=== PATIENT | female | born 1960 | race Caucasian/White ===

== ENCOUNTER 2019-02-02 13:26 | Inpatient (IN) ==
--- NOTE | 2019-02-02 17:42 | Internal Med History&Physical ---
<Prince Velez - Last Filed: 02/02/19 18:14> Date of Encounter: 02/02/19 Time of Encounter: 18:15 Internal Medicine - H&P: HPI Chief complaint: SOB Admitted From: Hospital to Hospital Transfer Plans for Post Hospital Care: Home History of present illness: Ms. Lafleur is a 58 year old female with history of hypothyroidism and DVTs who presented to [facility] for shortness of breath, poor appetite, nausea vomiting and diarrhea of 5 days duration. The patient says that these symptoms all started on Saturday of last week and has been progressively getting worse. The initially started with achiness in her muscles and joints and soreness all over her body. They eventually progressed to shortness of breath which apparently getting worse. It is associated with a cough which is sometimes productive. She says she did have some subjective fevers however denies chills and sweats. She also has some nausea and vomiting as well as some diarrhea with 2-3 loose bowel movements that are not black in color. She attempted to take some aspirin and Motrin for this however they were not helpful. She did take some old cough syrup that she had which was somewhat helpful. Nothing else seemed to be very helpful in this situation. In the ED the patient did have labs which demonstrated WBC 16 with 8% bands, and otherwise normal findings. She had a CXR with was generally unremarkable. Her vitals were significant for oxygen saturation of less than 80 on room air requiring oxygen to maintain saturation. She was transferred to [facility] for further management. Past Med Surg Social Fam HX - Past Medical History Medical history: diabetes, thyroid disease Psychiatric history: no psych history - Past Surgical History Surgical History: no surgical history - Social History Smoking Status: Current every day smoker Packs per day: 1 Smokeless Tobacco Status: No Alcohol use: none Drug use: none - Family History Mother Living Status: Still Living Hx Family Cardiac Disorders: Yes Internal Medicine - H&P: Meds Levothyroxine [Synthroid] 100 mcg PO 0630 02/02/19 [History] Allergy/AdvReac Type Severity Reaction Status Date / Time No Known Allergies Allergy Verified 02/02/19 10:34 All Systems PM: A 10-system review of systems was performed and is negative for pertinent findings except as documented above in the HPI. Review of systems: Constitutional: Denies chills, weight loss, generalized fatigue. Admits to subjective fever Head/Neck: Denies JUNG, neck stiffness EENT: Denies vision changes/blurriness, rhinorrhea, congestion, sore throat CVS: Denies chest pain, palpitations, PENN, orthopnea, edema, PND Pulm: Denies hemoptysis. Admits to shortness of breath, cough with sputum production, wheezing. GI: Denies abdominal pain, constipation, melena, hematemasis. Admits to nausea, vomiting, diarrhea : Denies dysuria, increased frequency, urgency, hematuria Heme: Denies ease of bleeding or bruising MSK: Denies joint pain, limited ROM Skin: Denies rashes, ulcers, color changes Neuro: Denies JUNG, paresthesias, focal deficits, ataxia - Constitutional Vitals: Temp Pulse Resp BP Pulse Ox 98.7 F 82 18 119/70 90 02/02/19 15:58 02/02/19 15:58 02/02/19 15:58 02/02/19 15:58 02/02/19 15:58 Exam: Gen: Vitals noted. No acute distress. Eyes: anicteric sclerae, moist conjunctivae; no lid-lag; Pupils equal and reactive to light HENT: Atraumatic; oropharynx clear with moist mucous membranes and no mucosal ulcerations; normal hard and soft palate Neck: Trachea midline; supple, no thyromegaly or lymphadenopathy Cardiac: RRR, no murmur, +S1/S2 Pulmonary: Diffuse wheezing with rhonchi and bilateral lower bases noted Abdomen: soft, nontender, no guarding. No masses or hepatosplenomegaly MSK: ROM intact, no joint swelling noted Extremities: no BLE edema, nontender calf, no cyanosis or clubbing Skin: Normal temperature, turgor and texture; no rash, ulcers or subcutaneous nodules Neuro: moves all extremities, no focal deficits. Psych: Appropriate mood and behavior. A&Ox3 - Assessment and Plan (1) COPD exacerbation Current Visit: Yes Status: Suspected Assessment and plan: Suspected COPD exacerbation, no confirmed diagnosis of COPD on pulmonary function tests Patient does have significant smoking history, wheezing and rhonchi on exam Presents with acute hypoxic and hypercapnic respiratory failure Chest x-ray demonstrates no specific consolidation however pneumonia does remain in the differential Start the patient on Solumedrol 60mg q8h, Rocephin and Azithromycin Continue O2, titrate to SPO2 >88% Duonebs q4h scheduled and prn Consider bipap support prn (2) Acute respiratory failure with hypoxia and hypercapnia Current Visit: Yes Status: Acute Assessment and plan: Acute hypoxic respiratory failure with hypercapnia Hypoxix requiring 6L O2, PCO2 56 Secondary to COPD exacerbation Plan as above (3) Community acquired pneumonia Current Visit: Yes Status: Suspected Assessment and plan: Plan above Check pro calcitonin Qualifiers: Laterality: unspecified laterality Qualified Code(s): J18.9 - Pneumonia, unspecified organism (4) History of DVT (deep vein thrombosis) Current Visit: Yes Status: Acute Assessment and plan: Subcutaneous Lovenox for prophylaxis (5) Hypothyroidism Current Visit: Yes Status: Acute Assessment and plan: Continue home levothyroxine Qualifiers: Hypothyroidism type: unspecified Qualified Code(s): E03.9 - Hypothyroidism, unspecified - Time Spent With Patient Total time spent is greater than 50% in coordination of care (as documented) at patient's floor/unit and/or counseling patient: <Yanelis Razo - Last Filed: 02/02/19 21:10> Date of Encounter: 02/02/19 Internal Medicine - H&P: HPI History of present illness: Ms. Lafleur is a 58 year old female All Systems PM: A 10-system review of systems was performed and is negative for pertinent findings except as documented above in the HPI. - Constitutional Vitals: Temp Pulse Resp BP Pulse Ox 98.5 F 83 14 108/78 88 02/02/19 20:02 02/02/19 20:02 02/02/19 20:06 02/02/19 20:02 02/02/19 20:06 Internal Med - H&P Results - ABG Interpretation ABG results: 02/02/19 19:48 ABG pH 7.40 ABG pCO2 54 H ABG pO2 53 L ABG HCO3 33 H ABG Total CO2 35 H ABG O2 Saturation 86 L ABG Base Excess 6 H - Assessment and Plan (1) Acute respiratory failure with hypoxia and hypercapnia Current Visit: Yes Status: Acute (2) COPD exacerbation Current Visit: Yes Status: Suspected (3) Community acquired pneumonia Current Visit: Yes Status: Suspected Qualifiers: Laterality: unspecified laterality Qualified Code(s): J18.9 - Pneumonia, unspecified organism (4) History of DVT (deep vein thrombosis) Current Visit: Yes Status: Acute (5) Hypothyroidism Current Visit: Yes Status: Acute Qualifiers: Hypothyroidism type: unspecified Qualified Code(s): E03.9 - Hypothyroidism, unspecified - Time Spent With Patient Total time spent is greater than 50% in coordination of care (as documented) at patient's floor/unit and/or counseling patient: - Attending Attestation I examined this patient and my medical decision-making was reviewed with the Resident Physician. I agree with the documented findings, disposition and treatment plan as described except to the extent set forth below.
[2019-02-02] MEDS ORDERED: Naloxone 0.4 MG/ML INJ IVP PRN (18:05)
[2019-02-02] MEDS ORDERED: Dextrose Gel 15 GM/37.5 ML TUBE PO PRN ×2 (18:09)
[2019-02-02] MEDS ORDERED: D5% in Water 1,000 ML IVC PRN (18:09)
[2019-02-02] MEDS ORDERED: *HR* Dextrose 50 % in Water (Syg) 50 ML SYRINGE IVP PRN (18:09)
[2019-02-02] MEDS ORDERED: Ipratropium/Albuterol Neb 3 ML IH PRN (18:09)
[2019-02-02 19:56] LABS: ABG Base Excess 6 mEq/L (-2 to 3); ABG HCO3 33 mEq/L (21-27); ABG Oxygen Saturation 86 % (95-98); ABG PCO2 54 mmHg (35-45); ABG PO2 53 mmHg (85-104); ABG TCO2 35 mEq/L (20-26)
[2019-02-02] MEDS: Ipratropium/Albuterol Neb 3 ML IH SCH (20:05)
[2019-02-02] MEDS: Insulin LISPRO 300 UNITS/3 ML VIAL SQ SCH ×2 (20:15→20:16)
[2019-02-02 20:40] LABS: Adenovirus DETECTED (Not Detect); Bordetella Pertussis Not Detected (Not Detect); Chlamydophila pneumoniae Not Detected (Not Detect); Coronavirus 229E Not Detected (Not Detect); Coronavirus HKU1 Not Detected (Not Detect); Coronavirus NL63 Not Detected (Not Detect); Coronavirus OC43 Not Detected (Not Detect); Human Metapneumovirus Not Detected (Not Detect); Human Rhinovirus/Enterovirus Not Detected (Not Detect); Influenza A Subtype 2009 H1 Not Detected (Not Detect); Influenza A Untypeable Not Detected (Not Detect); Influenza B Not Detected (Not Detect); Mycoplasma pneumoniae Not Detected (Not Detect); Parainfluenza Virus 1 Not Detected (Not Detect); Parainfluenza Virus 2 Not Detected (Not Detect); Parainfluenza Virus 3 Not Detected (Not Detect); Parainfluenza Virus 4 Not Detected (Not Detect); Respiratory Syncytial Virus Not Detected (Not Detect)
[2019-02-02] MEDS: methylPREDNISolone 125 MG/2 ML VIAL IVP SCH (23:57)
[2019-02-03] MEDS: Ipratropium/Albuterol Neb 3 ML IH SCH ×6 (00:10→19:55)
[2019-02-03] MEDS: *HR* Enoxaparin 40 MG/0.4 ML SYRINGE SQ SCH (05:35)
--- NOTE | 2019-02-03 06:15 | Internal Med Progress Note ---
<Prince Velez - Last Filed: 02/03/19 06:14> Hospitalist Progress Note - Encounter Date of Encounter: 02/03/19 - Exam Vitals: Temp Pulse Resp BP Pulse Ox 98.4 F 102 18 106/60 82 02/03/19 04:40 02/03/19 04:40 02/03/19 04:40 02/03/19 04:40 02/03/19 04:40 Exam: Gen: Vitals noted. No acute distress. Eyes: anicteric sclerae, moist conjunctivae; no lid-lag; Pupils equal and r eactive to light HENT: Atraumatic; oropharynx clear with moist mucous membranes and no mucosal ulcerations; normal hard and soft palate Neck: Trachea midline; supple, no thyromegaly or lymphadenopathy Cardiac: RRR, no murmur, +S1/S2 Pulmonary: Diffuse wheezing with rhonchi and bilateral lower bases noted Abdomen: soft, nontender, no guarding. No masses or hepatosplenomegaly MSK: ROM intact, no joint swelling noted Extremities: no BLE edema, nontender calf, no cyanosis or clubbing Skin: Normal temperature, turgor and texture; no rash, ulcers or subcutaneous nodules Neuro: moves all extremities, no focal deficits. Psych: Appropriate mood and behavior. A&Ox3 - Assessment and Plan (1) COPD exacerbation Current Visit: Yes Status: Suspected Assessment and Plan: Suspected COPD exacerbation, no confirmed diagnosis of COPD on pulmonary functio n tests Patient does have significant smoking history, wheezing and rhonchi on exam Presents with acute hypoxic and hypercapnic respiratory failure Chest x-ray demonstrates no specific consolidation however pneumonia does remain in the differential Continue Solumedrol 60mg q8h, Rocephin and Azithromycin Continue O2, titrate to SPO2 >88% Duonebs q4h scheduled and prn Consider bipap support prn (2) Community acquired pneumonia Current Visit: Yes Status: Suspected Assessment and Plan: Plan above Check pro calcitonin (3) History of DVT (deep vein thrombosis) Current Visit: Yes Status: Acute Assessment and Plan: Subcutaneous Lovenox for prophylaxis (4) Hypothyroidism Current Visit: Yes Status: Acute Assessment and Plan: Continue home levothyroxine - Time Spent with Patient Total time spent is greater than 50% in coordination of care (as documented) at patient's floor/unit and/or counseling patient: Internal Medicine: Result - ABG Interpretation ABG results: ABG ABG pH 7.40 pH Units (7.32-7.45) 02/02/19 19:48 ABG pCO2 54 mmHg (35-45) H 02/02/19 19:48 ABG pO2 53 mmHg (85-104) L 02/02/19 19:48 ABG O2 Saturation 86 % (95-98) L 02/02/19 19:48 Consult Discharge Plan - Plan Referrals: Yeu Galan, OVI [Primary Care Provider] - <Yanelis Razo - Last Filed: 02/03/19 21:52> Hospitalist Progress Note - Encounter Date of Encounter: 02/03/19 Time of Encounter: 09:00 - Exam Vitals: Temp Pulse Resp BP Pulse Ox 98.0 F 84 17 122/73 91 02/03/19 16:17 02/03/19 16:17 02/03/19 16:17 02/03/19 16:17 02/03/19 16:17 - Assessment and Plan (1) COPD exacerbation Current Visit: Yes Status: Suspected (2) Community acquired pneumonia Current Visit: Yes Status: Suspected (3) History of DVT (deep vein thrombosis) Current Visit: Yes Status: Acute (4) Hypothyroidism Current Visit: Yes Status: Acute - Time Spent with Patient Total time spent is greater than 50% in coordination of care (as documented) at patient's floor/unit and/or counseling patient: Internal Medicine: Result - Labs CBC & Chem 7: 02/03/19 06:08 02/03/19 06:08 Labs: Short CBC 02/03/19 Range/Units 06:08 WBC 17.4 H (4.3-11.1) K/mcL Hgb 13.0 (11.5-15.4) g/dL Hct 41.4 (35.3-44.9) % Plt Count 225 (140-400) K/mcL Neutrophils # 15.2 H (1.6-8.9) K/mcL BMP 02/03/19 06:08 Sodium 138 Potassium 3.9 Chloride 101 Carbon Dioxide 29 BUN 18 Creatinine 0.62 Glucose 234 H Calcium 9.6 Liver Function 02/03/19 Range/Units 06:08 Total Bilirubin 0.3 (0.3-1.0) mg/dL AST 37 (13-39) Units/L ALT 24 (7-52) Units/L Alkaline Phosphatase 79 (34-104) Units/L Albumin 3.3 L (3.5-5.7) g/dL - ABG Interpretation ABG results: ABG ABG pH 7.40 pH Units (7.32-7.45) 02/02/19 19:48 ABG pCO2 54 mmHg (35-45) H 02/02/19 19:48 ABG pO2 53 mmHg (85-104) L 02/02/19 19:48 ABG O2 Saturation 86 % (95-98) L 02/02/19 19:48 PT/INR, D-dimer PT 12.7 Seconds (9.4-12.1) H 02/03/19 06:08 - Attending Attestation No acute events. Patient states she SOB is improving, but nursing reports that she is still requiring high flow o2. Denies fevers/chills, cp, n/v. VS: reviewed, on high flow O2, afebrile Physical exam: gen mild resp distress, alert, CVS: tachycardic, lungs: wheezing, course breath sounds, abd: soft, nt/nd, ext: no edema. labs: reviewed: WBC 17k since starting steroids, was 16k yesterday. A/P: 1. Acute respiratory failure with hypoxia and hypercapnea 2. COPD exacerbation 3. Suspected bacterial pneumonia 4. URI + adenovirus - Continue supportive care with O2, steroids, antibiotics, scheduled Duo Nebs and prn, wean O2 as tolerated <Prince Velez - Last Filed: 02/03/19 06:14> (2) Community acquired pneumonia Qualifiers: Laterality: unspecified laterality Qualified Code(s): J18.9 - Pneumonia, unspecified organism (4) Hypothyroidism Qualifiers: Hypothyroidism type: unspecified Qualified Code(s): E03.9 - Hypothyroidism, unspecified <Yanelis Razo - Last Filed: 02/03/19 21:52> (2) Community acquired pneumonia Qualifiers: Laterality: unspecified laterality Qualified Code(s): J18.9 - Pneumonia, unspecified organism (4) Hypothyroidism Qualifiers: Hypothyroidism type: unspecified Qualified Code(s): E03.9 - Hypothyroidism, unspecified
[2019-02-03 06:25] LABS: Basophils # 0.1 K/mcL (0.0-0.2); Basophils % 0.3 %; Hematocrit 41.4 % (35.3-44.9); Immature Granulocytes % 1.2 % (0-4); Lymphocytes # 1.3 K/mcL (0.6-4.6); Lymphocytes % 7.5 %; Mean Corpuscular HGB Conc 31.4 g/dL (31.6-35.5); Mean Corpuscular Hemoglobin 28.3 pg (28.0-33.3); Mean Platelet Volume 10.4 fL (9.4-12.4); Monocytes # 0.7 K/mcL (0.0-1.3); Monocytes % 3.8 %; Neutrophils # 15.2 K/mcL (1.6-8.9); Platelet Count 225 K/mcL (140-400); Red Cell Distribution Width 14.1 % (11.5-14.5); Segmented Neutrophils % 87.2 %
[2019-02-03 06:37] LABS: INR 1.1; Prothrombin Time 12.7 Seconds (9.4-12.1)
[2019-02-03 06:49] LABS: Alanine Aminotransferase 24 Units/L (7-52); Albumin 3.3 g/dL (3.5-5.7); Albumin/Globulin Ratio 0.8 (1.1-2.2); Alkaline Phosphatase 79 Units/L (34-104); Aspartate Amino Transferase 37 Units/L (13-39); BUN/Creatinine Ratio 29 (6-26); Bilirubin,Total 0.3 mg/dL (0.3-1.0); Blood Urea Nitrogen 18 mg/dL (6-20); Calcium 9.6 mg/dL (8.6-10.3); Carbon Dioxide 29 mEq/L (23-29); Chloride 101 mEq/L (98-107); Glucose 234 mg/dL (70-105); Osmolality,Calculated 295 (280-300); Potassium 3.9 mEq/L (3.5-5.1); Sodium 138 mEq/L (136-145); Total Protein 7.3 g/dL (6.4-8.9); eGFR For Non-African Americans > 60 (> 60)
[2019-02-03 06:54] LABS: Platelet Estimate Normal (Normal)
[2019-02-03 07:19] LABS: Estimated Average Glucose 154 mg/dl
[2019-02-03] MEDS: Nicotine 14 MG PATCH.TD24 TD SCH (10:24)
[2019-02-03] MEDS: cefTRIAXone 1,000 MG in Water for inj. (sterile) 20 ML 10 ML IVP SCH (10:35)
[2019-02-03] MEDS: methylPREDNISolone 125 MG/2 ML VIAL IVP SCH ×3 (10:35→23:51)
[2019-02-03] MEDS: Insulin LISPRO 300 UNITS/3 ML VIAL SQ SCH ×4 (10:36→22:14)
[2019-02-03] MEDS: Azithromycin 500 MG in D5% in Water 250 ML IVPB SCH (13:17)
[2019-02-04] MEDS: Ipratropium/Albuterol Neb 3 ML IH SCH ×7 (00:39→23:36)
[2019-02-04] MEDS: *HR* Enoxaparin 40 MG/0.4 ML SYRINGE SQ SCH (05:54)
[2019-02-04] MEDS: Insulin LISPRO 300 UNITS/3 ML VIAL SQ SCH ×6 (08:41→22:45)
[2019-02-04] MEDS: Nicotine 14 MG PATCH.TD24 TD SCH (08:46)
[2019-02-04] MEDS: methylPREDNISolone 125 MG/2 ML VIAL IVP SCH ×2 (09:12→15:59)
[2019-02-04] MEDS: cefTRIAXone 1,000 MG in Water for inj. (sterile) 20 ML 10 ML IVP SCH (09:12)
[2019-02-04 11:37] LABS: Hematocrit 44.6 % (35.3-44.9); Hemoglobin 13.9 g/dL (11.5-15.4); Mean Corpuscular HGB Conc 31.2 g/dL (31.6-35.5); Mean Corpuscular Hemoglobin 28.4 pg (28.0-33.3); Mean Corpuscular Volume 91.2 fL (83.0-100.0); Mean Platelet Volume 10.5 fL (9.4-12.4); Platelet Count 280 K/mcL (140-400); Red Blood Count 4.89 M/mcL (3.82-4.97); Red Cell Distribution Width 14.2 % (11.5-14.5)
[2019-02-04] MEDS: Azithromycin 500 MG in D5% in Water 250 ML IVPB SCH (12:40)
[2019-02-04] MEDS ORDERED: Furosemide 20 MG/2 ML VIAL IVP ONE (13:42)
[2019-02-04] MEDS ORDERED: Isovue-370 500 ML BOTTLE IVP ONE (13:42)
[2019-02-04 14:19] LABS: Lymphocytes # 1.3 K/mcL (0.6-4.6); Monocytes # 0.9 K/mcL (0.0-1.3); Neutrophils # 20.1 K/mcL (1.6-8.9)
[2019-02-04 14:20] LABS: Platelet Estimate Normal (Normal); Reactive Lymphocytes Present (Not Present)
[2019-02-04] MEDS: Levofloxacin 750 MG/150 ML 750 MG/150 ML BAG IVPB SCH (15:58)
[2019-02-04] MEDS: Cefepime HCl 2,000 MG in Water for inj. (sterile) 20 ML 20 ML IVP SCH (15:59)
--- NOTE | 2019-02-04 16:05 | Internal Med Progress Note ---
<Prince Velez - Last Filed: 02/04/19 16:02> Hospitalist Progress Note - Encounter Date of Encounter: 02/04/19 Time of Encounter: 09:35 - Subjective Interval History: Patient has improved some clinically, but still requires high flow O2 and sometimes BiPAP support. She says that she is breathing better, however coughing less. 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 - Exam Vitals: Temp Pulse Resp BP Pulse Ox 97.7 F 74 16 125/74 94 02/04/19 10:51 02/04/19 10:51 02/04/19 11:21 02/04/19 10:51 02/04/19 11:21 Exam: Gen: Vitals noted. No acute distress. Eyes: anicteric sclerae, moist conjunctivae; no lid-lag; Pupils equal and reactive to light HENT: Atraumatic; oropharynx clear with moist mucous membranes and no mucosal ulcerations; normal hard and soft palate Neck: Trachea midline; supple, no thyromegaly or lymphadenopathy Cardiac: RRR, no murmur, +S1/S2 Pulmonary: Poor air flow b/l, diffuse wheezes Abdomen: soft, nontender, no guarding. No masses or hepatosplenomegaly MSK: ROM intact, no joint swelling noted Extremities: no BLE edema, nontender calf, no cyanosis or clubbing Skin: Normal temperature, turgor and texture; no rash, ulcers or subcutaneous nodules Neuro: moves all extremities, no focal deficits. Psych: Appropriate mood and behavior. A&Ox3 - Assessment and Plan (1) COPD exacerbation Current Visit: Yes Status: Suspected Assessment and Plan: Suspected COPD exacerbation, no confirmed diagnosis of COPD on pulmonary function tests Patient does have significant smoking history, wheezing and rhonchi on exam Presents with acute hypoxic and hypercapnic respiratory failure Chest x-ray demonstrates no specific consolidation however pneumonia does remain in the differential Continue Solumedrol 60mg q8h Continue O2, titrate to SPO2 >88% Duonebs q4h scheduled and prn Consider bipap support prn Consult to pulmonology as patient continues to require high flow O2 with little improvement Recommended pseudomonal coverage Switch to cefepime + levaquin CTA Chest to rule out PE, Echo to rule out CHF 20mg IV Lasix (2) Community acquired pneumonia Current Visit: Yes Status: Suspected Assessment and Plan: Plan above Check pro calcitonin (3) History of DVT (deep vein thrombosis) Current Visit: Yes Status: Acute Assessment and Plan: Subcutaneous Lovenox for prophylaxis (4) Hypothyroidism Current Visit: Yes Status: Acute Assessment and Plan: Continue home levothyroxine - Time Spent with Patient Total time spent is greater than 50% in coordination of care (as documented) at patient's floor/unit and/or counseling patient: Internal Medicine: Result - Labs CBC & Chem 7: 02/04/19 11:17 02/03/19 06:08 Labs: Short CBC 02/04/19 Range/Units 11:17 WBC 22.3 H (4.3-11.1) K/mcL Hgb 13.9 (11.5-15.4) g/dL Hct 44.6 (35.3-44.9) % Plt Count 280 (140-400) K/mcL Neutrophils # 20.1 H (1.6-8.9) K/mcL - ABG Interpretation ABG results: ABG ABG pH 7.40 pH Units (7.32-7.45) 02/02/19 19:48 ABG pCO2 54 mmHg (35-45) H 02/02/19 19:48 ABG pO2 53 mmHg (85-104) L 02/02/19 19:48 ABG O2 Saturation 86 % (95-98) L 02/02/19 19:48 PT/INR, D-dimer PT 12.7 Seconds (9.4-12.1) H 02/03/19 06:08 - Impressions Impressions Chest CTA 02/04/19 13:42 IMPRESSION: No evidence of pulmonary embolism. Bibasilar airspace disease suspicious for pneumonia. Disease in the lingula may be due to superimposed atelectasis. Given the lower lobe dependent endobronchial opacification aspiration pneumonia is considered. This may also be due to mucous plugging. D/ / Vern Milton MD / Vern Milton MD Interpreting Provider: Vern Milton MD Consult Discharge Plan - Plan Referrals: Yue Galan, RADIATOR MECHANIC [Primary Care Provider] - 02/06/19 11:00 am <Ziggy Wilson - Last Filed: 02/04/19 18:31> Hospitalist Progress Note - Encounter Date of Encounter: 02/04/19 Internal Medicine: Result - Labs CBC & Chem 7: 02/04/19 11:17 02/03/19 06:08 Labs: Short CBC 02/04/19 Range/Units 11:17 WBC 22.3 H (4.3-11.1) K/mcL Hgb 13.9 (11.5-15.4) g/dL Hct 44.6 (35.3-44.9) % Plt Count 280 (140-400) K/mcL Neutrophils # 20.1 H (1.6-8.9) K/mcL - ABG Interpretation ABG results: ABG ABG pH 7.40 pH Units (7.32-7.45) 02/02/19 19:48 ABG pCO2 54 mmHg (35-45) H 02/02/19 19:48 ABG pO2 53 mmHg (85-104) L 02/02/19 19:48 ABG O2 Saturation 86 % (95-98) L 02/02/19 19:48 PT/INR, D-dimer PT 12.7 Seconds (9.4-12.1) H 02/03/19 06:08 - Impressions Impressions Chest CTA 02/04/19 13:42 IMPRESSION: No evidence of pulmonary embolism. Bibasilar airspace disease suspicious for pneumonia. Disease in the lingula may be due to superimposed atelectasis. Given the lower lobe dependent endobronchial opacification aspiration pneumonia is considered. This may also be due to mucous plugging. D/ / Vern Milton MD / Vern Milton MD Interpreting Provider: Vern Milton MD - Attending Attestation Patient seen and examined independently, including review of objective data including labs. I agree with plan of care as documented above by the resident with the following comments: Initially concerned upon learning that this patient with undiagnosed COPD was now requiring 10L [place] to maintain sats; however upon my exam the patient was comfortable and talking unlabored in full sentences. Pulse ox showing sats 95%+ when waveform was good, and sats ~80% when poor/absent waveform, suspicious of mechanical issue and not true severe hypoxemia. I personally weaned patient to 5 L and continued discussion, with pt maintaining 92-94% on 5L while talking, with occasional episodes of sudden desats correlating with poor waveform which would return to 90s when patient stopped moving and waveform/reading improved. However, by this time, Pulmonology had already been consulted and I do agree with broadening abx coverage for now and ensuring patient does continue to improve. Likely secondary bacterial pneumonia following adenovirus infection causing COPD exacerbation and acute hypoxic respiratory failure. <Prince Velez - Last Filed: 02/04/19 16:02> (2) Community acquired pneumonia Qualifiers: Laterality: unspecified laterality Qualified Code(s): J18.9 - Pneumonia, unspecified organism (4) Hypothyroidism Qualifiers: Hypothyroidism type: unspecified Qualified Code(s): E03.9 - Hypothyroidism, unspecified
--- NOTE | 2019-02-04 17:11 | Pulmonology Consult Note ---
Date of Encounter: 02/04/19 Time of Encounter: 16:00 Assessment and Plan (1) Acute respiratory failure with hypoxia Current Visit: Yes Status: Acute Patient acute respiratory failure with hypoxia and reviewed the CTA which did not show any evidence of acute pulmonary embolism with the given history of DVT. Bilateral upper lobe changes of emphysema noted in subtle groundglass opacities with left lower lobe infiltrates. Contributing to the current acute hypoxic respiratory failure. Most likely due to viral exacerbation of COPD with secondary bacterial pneumonia. (2) COPD exacerbation Current Visit: Yes Status: Suspected Continue scheduled bronchodilator , steroids will need 2 week taper of prednisone. Patient will need oxygen on discharge. Please get an echo for exertion hypertensive heart disease with possible diastolic dysfunction. Most likely this groundglass opacities are mostly secondary to the viral pneumonia. (3) Pneumonia Current Visit: Yes Status: Acute Patient does not have any symptoms of aspiration pneumonia most likely due to secondary pneumonia after Viral exacerbation of COPD to continue incentive spirometry and will give clearance therapy to bring up more sputum will send for sputum culture and sensitivity. Qualifiers: Laterality: left Lung location: lower lobe of lung Qualified Code(s): J 18.1 - Lobar pneumonia, unspecified organism History of Present Illness Consult date: 02/04/19 Requesting physician: Prince Velez Reason for consult: COPD, abnormal CXR/CT Chief complaint: Shortness of breath History of present illness: 58-year-old female with past medical history significant for DVT, chronic smoking, hypothyroidism comes with viral prodrome symptoms with worsening shortness of breath cough and sputum production. Patient had some fever and chills pulmonary was consult that for this acute hypoxic respiratory failure which is not getting better with current regimen of treatment. Patient denies any chest pain chest tightness denies any palpitation or syncope patient denies any abdominal symptoms, no GERD symptoms denies any focal neurological deficit. Patient was not evaluated as an outpatient for COPD. Pulmonary was consulted for evaluation of of this acute hypoxic respiratory failure Past Med Surg Social Fam HX - Past Medical History Medical history: diabetes, thyroid disease Psychiatric history: no psych history - Past Surgical History Surgical History: no surgical history - Social History Smoking Status: Current every day smoker Packs per day: 1 Smokeless Tobacco Status: No Alcohol use: none Drug use: none - Family History Mother Living Status: Still Living Hx Family Cardiac Disorders: Yes Medications and Allergies Levothyroxine [Synthroid] 100 mcg PO 0630 02/02/19 [History] Allergy/AdvReac Type Severity Reaction Status Date / Time No Known Allergies Allergy Verified 02/03/19 13:32 All Systems: The remainder of the systems were reviewed and are negative Physical Examination Vital Signs: Vital Signs, Last 4 Hours Temp Pulse Resp BP Pulse Ox 02/04/19 16:37 97.5 F L 69 16 118/71 92 02/04/19 15:36 16 91 General appearance: no acute distress Effort: mildly labored Auscultation: bilateral: wheezes (Minimal scattered) Cardiovascular: regular rate and rhythm Gastrointestinal: normoactive bowel sounds Extremities: no edema Musculoskeletal: no deformities normal mental status, non-focal exam mood appropriate Results - Laboratory Findings CBC and BMP: 02/04/19 11:17 02/03/19 06:08 ABG ABG pH 7.40 pH Units (7.32-7.45) 02/02/19 19:48 ABG pCO2 54 mmHg (35-45) H 02/02/19 19:48 ABG pO2 53 mmHg (85-104) L 02/02/19 19:48 ABG O2 Saturation 86 % (95-98) L 02/02/19 19:48 PT/INR, D-dimer PT 12.7 Seconds (9.4-12.1) H 02/03/19 06:08 Abnormal lab findings: Abnormal lab results WBC 22.3 K/mcL (4.3-11.1) H 02/04/19 11:17 MCHC 31.2 g/dL (31.6-35.5) L 02/04/19 11:17 Neutrophils # 20.1 K/mcL (1.6-8.9) H 02/04/19 11:17 Reactive Lymphocytes Present (Not Present) A 02/04/19 11:17 PT 12.7 Seconds (9.4-12.1) H 02/03/19 06:08 ABG pCO2 54 mmHg (35-45) H 02/02/19 19:48 ABG pO2 53 mmHg (85-104) L 02/02/19 19:48 ABG HCO3 33 mEq/L (21-27) H 02/02/19 19:48 ABG Total CO2 35 mEq/L (20-26) H 02/02/19 19:48 ABG O2 Saturation 86 % (95-98) L 02/02/19 19:48 ABG Base Excess 6 mEq/L (-2 to 3) H 02/02/19 19:48 BUN/Creatinine Ratio 29 (6-26) H 02/03/19 06:08 Glucose 234 mg/dL (70-105) H 02/03/19 06:08 POC Glucose 225 mg/dL (70-99) H 02/02/19 20:14 Hemoglobin A1c 7.0 % (-5.6) H 02/03/19 06:08 B-Natriuretic Peptide 182 pg/mL (Less than 100) H 02/03/19 06:08 Albumin 3.3 g/dL (3.5-5.7) L 02/03/19 06:08 Globulin 4.0 g/dL (2.4-3.5) H 02/03/19 06:08 Albumin/Globulin Ratio 0.8 (1.1-2.2) L 02/03/19 06:08 Adenovirus (PCR) DETECTED (Not Detect) A 02/02/19 18:23 - Clinical Findings Intake & Output: Intake & Output 02/04/19 02/04/19 02/04/19 07:59 15:59 23:59 Intake Total 0 / 0 610 / 610 Output Total 0 / 0 500 / 500 Balance 0 / 0 610 / 610 -500 / -500 Consult Discharge Plan - Plan Referrals: Yue Galan, DIRECTOR OF MANUFACTURING [Primary Care Provider] - 02/06/19 11:00 am
[2019-02-04] MEDS ORDERED: Perflutren Lipid Microsphere 1.3 ML in 0.9 % Sodium Chloride 8.7 ML IVP ONE (19:39)
[2019-02-04] MEDS: Insulin DETEMIR 100 UNIT/ML X5UNITS SQ SCH (22:45)
[2019-02-05] MEDS: methylPREDNISolone 125 MG/2 ML VIAL IVP SCH ×3 (00:47→16:23)
[2019-02-05] MEDS: Cefepime HCl 2,000 MG in Water for inj. (sterile) 20 ML 20 ML IVP SCH ×2 (00:48→08:52)
[2019-02-05] MEDS: MetroNIDAZOLE 500 MG/100 ML 500 MG/100 ML BAG IVPB SCH ×2 (00:48→09:03)
[2019-02-05] MEDS: Ipratropium/Albuterol Neb 3 ML IH SCH ×6 (04:26→23:40)
[2019-02-05] MEDS: *HR* Enoxaparin 40 MG/0.4 ML SYRINGE SQ SCH (05:40)
[2019-02-05 07:20] LABS: Basophils # 0.1 K/mcL (0.0-0.2); Basophils % 0.5 %; Hematocrit 40.8 % (35.3-44.9); Hemoglobin 12.9 g/dL (11.5-15.4); Immature Granulocytes % 3.6 % (0-4); Lymphocytes # 1.3 K/mcL (0.6-4.6); Lymphocytes % 7.7 %; Mean Corpuscular HGB Conc 31.6 g/dL (31.6-35.5); Mean Corpuscular Hemoglobin 28.4 pg (28.0-33.3); Mean Corpuscular Volume 89.7 fL (83.0-100.0); Mean Platelet Volume 10.4 fL (9.4-12.4); Monocytes # 0.7 K/mcL (0.0-1.3); Monocytes % 3.9 %; Neutrophils # 14.7 K/mcL (1.6-8.9); Platelet Count 264 K/mcL (140-400); Red Blood Count 4.55 M/mcL (3.82-4.97); Red Cell Distribution Width 14.1 % (11.5-14.5); Segmented Neutrophils % 84.3 %
[2019-02-05 08:15] LABS: Reactive Lymphocytes Present (Not Present)
[2019-02-05 08:16] LABS: Platelet Estimate Normal (Normal)
[2019-02-05] MEDS: Nicotine 14 MG PATCH.TD24 TD SCH (08:29)
[2019-02-05] MEDS: Insulin LISPRO 300 UNITS/3 ML VIAL SQ SCH ×7 (08:29→20:48)
[2019-02-05] MEDS: Levofloxacin 750 MG/150 ML 750 MG/150 ML BAG IVPB SCH (10:23)
--- NOTE | 2019-02-05 14:26 | Pulmonology Progress Note ---
Date of Encounter: 02/05/19 Time of Encounter: 14:00 Assessment and Plan (1) Acute respiratory failure with hypoxia Current Visit: Yes Status: Acute (2) COPD exacerbation Current Visit: Yes Status: Suspected (3) Pneumonia Current Visit: Yes Status: Acute Qualifiers: Laterality: left Lung location: lower lobe of lung Qualified Code(s): J18.1 - Lobar pneumonia, unspecified organism Objective PUL Vital signs: Last Vital Signs Temp 98.4 F 02/05/19 11:48 Pulse 79 02/05/19 11:48 Resp 18 02/05/19 11:48 BP 130/73 02/05/19 11:48 Pulse Ox 96 02/05/19 11:48 Results - Laboratory Findings CBC and BMP: 02/05/19 06:59 02/03/19 06:08 ABG ABG pH 7.40 pH Units (7.32-7.45) 02/02/19 19:48 ABG pCO2 54 mmHg (35-45) H 02/02/19 19:48 ABG pO2 53 mmHg (85-104) L 02/02/19 19:48 ABG O2 Saturation 86 % (95-98) L 02/02/19 19:48 PT/INR, D-dimer PT 12.7 Seconds (9.4-12.1) H 02/03/19 06:08 Abnormal lab findings: Abnormal lab results WBC 17.4 K/mcL (4.3-11.1) H 02/05/19 06:59 Neutrophils # 14.7 K/mcL (1.6-8.9) H 02/05/19 06:59 Reactive Lymphocytes Present (Not Present) A 02/05/19 06:59 PT 12.7 Seconds (9.4-12.1) H 02/03/19 06:08 ABG pCO2 54 mmHg (35-45) H 02/02/19 19:48 ABG pO2 53 mmHg (85-104) L 02/02/19 19:48 ABG HCO3 33 mEq/L (21-27) H 02/02/19 19:48 ABG Total CO2 35 mEq/L (20-26) H 02/02/19 19:48 ABG O2 Saturation 86 % (95-98) L 02/02/19 19:48 ABG Base Excess 6 mEq/L (-2 to 3) H 02/02/19 19:48 BUN/Creatinine Ratio 29 (6-26) H 02/03/19 06:08 Glucose 234 mg/dL (70-105) H 02/03/19 06:08 POC Glucose 239 mg/dL (70-99) H 02/04/19 16:41 Hemoglobin A1c 7.0 % (-5.6) H 02/03/19 06:08 B-Natriuretic Peptide 182 pg/mL (Less than 100) H 02/03/19 06:08 Albumin 3.3 g/dL (3.5-5.7) L 02/03/19 06:08 Globulin 4.0 g/dL (2.4-3.5) H 02/03/19 06:08 Albumin/Globulin Ratio 0.8 (1.1-2.2) L 02/03/19 06:08 Adenovirus (PCR) DETECTED (Not Detect) A 02/02/19 18:23 - Microbiology Findings Microbiology Findings: Microbiology, Last 48 Hours 02/05/19 04:30 Sputum Culture - Preliminary Sputum - Clinical Findings Intake & Output: Intake & Output 02/04/19 02/05/19 02/05/19 23:59 07:59 15:59 Intake Total 170 / 170 220 / 220 600 / 600 Output Total 900 / 900 0 / 0 Balance -730 / -730 220 / 220 600 / 600 Weight 102.4 kg Consult Discharge Plan - Plan Referrals: Yue Galan, TRANSITION MANAGER [Primary Care Provider] - 02/06/19 11:00 am
--- NOTE | 2019-02-05 17:52 | Internal Med Progress Note ---
<Celsa Peterson - Last Filed: 02/05/19 18:01> Hospitalist Progress Note - Encounter Date of Encounter: 02/05/19 Time of Encounter: 08:15 - Subjective Interval History: Ms. Lafleur was seen at bedside this morning. She was resting comfortably on 4 L of nasal cannula. Her vitals were reviewed and she remained afebrile and hemodynamically stable overnight. She reported her shortness of breath has significantly improved since admission. She denied fever, chills, nausea, emesis, shortness of breath. - Exam Vitals: Temp Pulse Resp BP Pulse Ox 98.4 F 72 18 130/71 92 02/05/19 15:00 02/05/19 15:00 02/05/19 15:24 02/05/19 15:00 02/05/19 15:24 Exam: Gen: Vitals noted. No acute distress. Eyes: anicteric sclerae, moist conjunctivae; no lid-lag; HENT: Atraumatic; oropharynx clear with moist mucous membranes and no mucosal ulcerations; normal hard and soft palate Neck: Trachea midline; supple, no lymphadenopathy Cardiac: RRR, no murmur, +S1/S2 Pulmonary: Poor air flow b/l, diffuse wheezes Abdomen: soft, nontender, no guarding. No masses or hepatosplenomegaly MSK: ROM intact, no joint swelling noted Extremities: no BLE edema, nontender calf, no cyanosis or clubbing Skin: Normal temperature, turgor and texture; no rash, ulcers or subcutaneous nodules Neuro: moves all extremities, no focal deficits. Psych: Appropriate mood and behavior. A&Ox3 - Assessment and Plan (1) COPD exacerbation Current Visit: Yes Status: Suspected Assessment and Plan: Does not have previous pulmonary function tests but due to wheezing and chronic cough likely has underlying COPD Exacerbation due to viral pneumonia Patient does have significant smoking history Presented with acute hypoxic and hypercapnic respiratory failure Chest x-ray demonstrates no specific consolidation however pneumonia does remain in the differential Received 3 days of IV Solu-Medrol will switch to by mouth prednisone 60 mg tomorrow Continue O2, titrate to SPO2 >88% Duonebs q4h scheduled and prn Consider bipap support prn Pulmonology consulted Continue to titrate prednisone Due to improvement of her respiratory status and no concern for healthcare acquired pneumonia de-escalate antibiotics to Levaquin oral CTA Chest ruled out but did show bibasilar airspace disease Continue incentive spirometry Continue to titrate supplemental oxygen (2) Community acquired pneumonia Current Visit: Yes Status: Suspected Assessment and Plan: Same plan as COPD -Will require 7-10 days of total antibiotic regimen today is day 2 (3) Hypothyroidism Current Visit: Yes Status: Acute Assessment and Plan: Continue home levothyroxine (4) History of DVT (deep vein thrombosis) Current Visit: Yes Status: Acute Assessment and Plan: Subcutaneous Lovenox for prophylaxis DVT Prophylaxis: We will continue Lovenox - Time Spent with Patient Total time spent is greater than 50% in coordination of care (as documented) at patient's floor/unit and/or counseling patient: Internal Medicine: Result - Labs CBC & Chem 7: 02/05/19 06:59 02/03/19 06:08 Labs: Short CBC 02/05/19 Range/Units 06:59 WBC 17.4 H (4.3-11.1) K/mcL Hgb 12.9 (11.5-15.4) g/dL Hct 40.8 (35.3-44.9) % Plt Count 264 (140-400) K/mcL Neutrophils # 14.7 H (1.6-8.9) K/mcL - ABG Interpretation ABG results: ABG ABG pH 7.40 pH Units (7.32-7.45) 02/02/19 19:48 ABG pCO2 54 mmHg (35-45) H 02/02/19 19:48 ABG pO2 53 mmHg (85-104) L 02/02/19 19:48 ABG O2 Saturation 86 % (95-98) L 02/02/19 19:48 PT/INR, D-dimer PT 12.7 Seconds (9.4-12.1) H 02/03/19 06:08 - Impressions Impressions Echocardiogram 02/04/19 13:42 Impressions: LVEF 60-65%. Normal LV chamber size, wall thickness and function. Mild left ventricular diastolic dysfunction. Normal right ventricular structure and function. No evidence of pulmonary hypertension. No significant valvular dysfunction. Left Ventricular Wall Motion: Rest Echo Findings All wall segments showed normal motion. Findings: Study Quality * Technically adequate exam. ECG Findings * Normal sinus rhythm. Left Ventricle * LVEF 60-65%. * Normal LV chamber size, wall thickness and function. * Mild left ventricular diastolic dysfunction. Right Ventricle * Normal right ventricular structure and function. Left Atrium * Moderately dilated left atrium. Right Atrium * Mildly dilated right atrium. Aortic Valve * Aortic valve not well visualized. * Trace aortic regurgitation. * No aortic stenosis. Mitral Valve * Normal mitral valve structure and function. * No mitral regurgitation. * No mitral stenosis. Tricuspid Valve * Normal tricuspid valve structure and function. * Trace tricuspid regurgitation. * No evidence of pulmonary hypertension. Pulmonic Valve * Pulmonic valve is not well visualized. * No pulmonic regurgitation. Aorta * Normally sized aortic root. Pericardium * The pericardium appears normal. IVC * Normal IVC dimensions and inspiratory collapse. Pulmonary Artery * Normal visualized portions of the main pulmonary artery. Consult Discharge Plan - Plan Referrals: Yue Galan CNP [Primary Care Provider] - 02/06/19 11:00 am Deng Matos MD [Partnered Physician] - (The office of Dr. Matos will call patient will a hospital follow up appointment ) <Ziggy Wilson - Last Filed: 02/05/19 18:41> Hospitalist Progress Note - Encounter Date of Encounter: 02/05/19 Internal Medicine: Result - Labs CBC & Chem 7: 02/05/19 06:59 02/03/19 06:08 Labs: Short CBC 02/05/19 Range/Units 06:59 WBC 17.4 H (4.3-11.1) K/mcL Hgb 12.9 (11.5-15.4) g/dL Hct 40.8 (35.3-44.9) % Plt Count 264 (140-400) K/mcL Neutrophils # 14.7 H (1.6-8.9) K/mcL - ABG Interpretation ABG results: ABG ABG pH 7.40 pH Units (7.32-7.45) 02/02/19 19:48 ABG pCO2 54 mmHg (35-45) H 02/02/19 19:48 ABG pO2 53 mmHg (85-104) L 02/02/19 19:48 ABG O2 Saturation 86 % (95-98) L 02/02/19 19:48 PT/INR, D-dimer PT 12.7 Seconds (9.4-12.1) H 02/03/19 06:08 - Impressions Impressions Echocardiogram 02/04/19 13:42 Impressions: LVEF 60-65%. Normal LV chamber size, wall thickness and function. Mild left ventricular diastolic dysfunction. Normal right ventricular structure and function. No evidence of pulmonary hypertension. No significant valvular dysfunction. Left Ventricular Wall Motion: Rest Echo Findings All wall segments showed normal motion. Findings: Study Quality * Technically adequate exam. ECG Findings * Normal sinus rhythm. Left Ventricle * LVEF 60-65%. * Normal LV chamber size, wall thickness and function. * Mild left ventricular diastolic dysfunction. Right Ventricle * Normal right ventricular structure and function. Left Atrium * Moderately dilated left atrium. Right Atrium * Mildly dilated right atrium. Aortic Valve * Aortic valve not well visualized. * Trace aortic regurgitation. * No aortic stenosis. Mitral Valve * Normal mitral valve structure and function. * No mitral regurgitation. * No mitral stenosis. Tricuspid Valve * Normal tricuspid valve structure and function. * Trace tricuspid regurgitation. * No evidence of pulmonary hypertension. Pulmonic Valve * Pulmonic valve is not well visualized. * No pulmonic regurgitation. Aorta * Normally sized aortic root. Pericardium * The pericardium appears normal. IVC * Normal IVC dimensions and inspiratory collapse. Pulmonary Artery * Normal visualized portions of the main pulmonary artery. - Attending Attestation Patient seen and examined independently, including review of objective data including labs. I agree with plan of care as documented above by the resident with the following comments: 58 F w extensive smoking hx who p/w COPD exacerbation 2/2 adenovirus and likely superimposed secondary bacterial pneumonia, causing acute hypoxic respiratory failure. Significantly improved today, able this afternoon to wean to room air while at rest, although still hypoxic with exertion. De-escalate to PO steroids, PO levaquin, space nebs to q6h, and plan walk test in AM. Likely d/c tomorrow. Smoking cessation education provided today 6 minutes. Will need MARK and LAMA inhalers at discharge. <Celsa Peterson - Last Filed: 02/05/19 18:01> (2) Community acquired pneumonia Qualifiers: Laterality: unspecified laterality Qualified Code(s): J18.9 - Pneumonia, unspecified organism (3) Hypothyroidism Qualifiers: Hypothyroidism type: unspecified Qualified Code(s): E03.9 - Hypothyroidism, unspecified
[2019-02-05] MEDS: Insulin DETEMIR 100 UNIT/ML X5UNITS SQ SCH (20:48)
--- NOTE | 2019-02-06 01:44 | Pulmonology Progress Note ---
Date of Encounter: 02/05/19 Time of Encounter: 14:00 Assessment and Plan (1) Acute respiratory failure with hypoxia Current Visit: Yes Status: Acute Is due to COPD exacerbation complicated by Adenovirus infection. Patient might need O2 supplementation during exercise at least for 4-6 weeks we will follow-up in pulmonary clinic and reassess at that time for oxygen needs. (2) COPD exacerbation Current Visit: Yes Status: Suspected Patient is presently in COPD exacerbation complicated by adenoviurs infection patient should be sent home on albuterol nebulizer, Spiriva 2 weeks steroid taper to complete the course of antibiotics 5-7 days Pulmonary will sign off please call with questions. To schedule 4 weeks follow- up appointment in clinic. (3) Pneumonia Current Visit: Yes Status: Acute Complete total 7 days of antibiotics. Qualifiers: Laterality: left Lung location: lower lobe of lung Qualified Code(s): J18.1 - Lobar pneumonia, unspecified organism Subjective Principal diagnosis: COPD exacerbation Objective PUL Vital signs: Last Vital Signs Temp 98.0 F 02/05/19 20:21 Pulse 68 02/05/19 20:21 Resp 14 02/05/19 23:43 BP 131/83 02/05/19 20:21 Pulse Ox 96 02/05/19 23:43 Auscultation: bilateral: wheezes (Minimally scattered wheezes ) Cardiovascular: regular rate and rhythm Gastrointestinal: normoactive bowel sounds Extremities: no edema Musculoskeletal: no deformities normal mental status, non-focal exam mood appropriate Results - Laboratory Findings CBC and BMP: 02/05/19 06:59 02/03/19 06:08 ABG ABG pH 7.40 pH Units (7.32-7.45) 02/02/19 19:48 ABG pCO2 54 mmHg (35-45) H 02/02/19 19:48 ABG pO2 53 mmHg (85-104) L 02/02/19 19:48 ABG O2 Saturation 86 % (95-98) L 02/02/19 19:48 PT/INR, D-dimer PT 12.7 Seconds (9.4-12.1) H 02/03/19 06:08 Abnormal lab findings: Abnormal lab results WBC 17.4 K/mcL (4.3-11.1) H 02/05/19 06:59 Neutrophils # 14.7 K/mcL (1.6-8.9) H 02/05/19 06:59 Reactive Lymphocytes Present (Not Present) A 02/05/19 06:59 PT 12.7 Seconds (9.4-12.1) H 02/03/19 06:08 ABG pCO2 54 mmHg (35-45) H 02/02/19 19:48 ABG pO2 53 mmHg (85-104) L 02/02/19 19:48 ABG HCO3 33 mEq/L (21-27) H 02/02/19 19:48 ABG Total CO2 35 mEq/L (20-26) H 02/02/19 19:48 ABG O2 Saturation 86 % (95-98) L 02/02/19 19:48 ABG Base Excess 6 mEq/L (-2 to 3) H 02/02/19 19:48 BUN/Creatinine Ratio 29 (6-26) H 02/03/19 06:08 Glucose 234 mg/dL (70-105) H 02/03/19 06:08 POC Glucose 262 mg/dL (70-99) H 02/05/19 15:49 Hemoglobin A1c 7.0 % (-5.6) H 02/03/19 06:08 B-Natriuretic Peptide 182 pg/mL (Less than 100) H 02/03/19 06:08 Albumin 3.3 g/dL (3.5-5.7) L 02/03/19 06:08 Globulin 4.0 g/dL (2.4-3.5) H 02/03/19 06:08 Albumin/Globulin Ratio 0.8 (1.1-2.2) L 02/03/19 06:08 Adenovirus (PCR) DETECTED (Not Detect) A 02/02/19 18:23 - Microbiology Findings Microbiology Findings: Microbiology, Last 48 Hours 02/05/19 04:30 Sputum Culture - Preliminary Sputum - Clinical Findings Intake & Output: Intake & Output 02/05/19 02/05/19 02/06/19 15:59 23:59 07:59 Intake Total 1200 / 1200 200 / 200 Output Total 700 / 700 Balance 500 / 500 200 / 200 Consult Discharge Plan - Plan Referrals: Yue Galan CNP [Primary Care Provider] - 02/06/19 11:00 am Deng Matos MD [Partnered Physician] - (The office of Dr. Carlo gill l call patient will a hospital follow up appointment )
[2019-02-06 03:35] LABS: Basophils # 0.2 K/mcL (0.0-0.2); Hematocrit 41.6 % (35.3-44.9); Immature Granulocytes % 5.3 % (0-4); Lymphocytes # 1.8 K/mcL (0.6-4.6); Lymphocytes % 10.1 %; Mean Corpuscular HGB Conc 31.3 g/dL (31.6-35.5); Mean Corpuscular Hemoglobin 28.3 pg (28.0-33.3); Mean Corpuscular Volume 90.6 fL (83.0-100.0); Mean Platelet Volume 10.3 fL (9.4-12.4); Monocytes % 5.7 %; Neutrophils # 13.6 K/mcL (1.6-8.9); Platelet Count 257 K/mcL (140-400); Red Blood Count 4.59 M/mcL (3.82-4.97); Red Cell Distribution Width 13.7 % (11.5-14.5); Segmented Neutrophils % 77.9 %
[2019-02-06 04:02] LABS: Platelet Estimate Normal (Normal)
[2019-02-06] MEDS: Ipratropium/Albuterol Neb 3 ML IH SCH ×3 (04:12→11:15)
[2019-02-06] MEDS: *HR* Enoxaparin 40 MG/0.4 ML SYRINGE SQ SCH (06:05)
[2019-02-06] MEDS ORDERED: predniSONE 20 MG TABLET PO SCH (09:00)
[2019-02-06] MEDS ORDERED: levoFLOXacin 750 MG TABLET PO SCH (09:00)
[2019-02-06] MEDS: Insulin LISPRO 300 UNITS/3 ML VIAL SQ SCH ×4 (09:24→12:55)
[2019-02-06] MEDS: Nicotine 14 MG PATCH.TD24 TD SCH (09:26)
[2019-02-06 11:13] VITALS: BP 100/64
--- NOTE | 2019-02-06 11:14 | Discharge Summary ---
<Celsa Peterson - Last Filed: 02/06/19 10:49> - NOTES TO OUTPATIENT PROVIDER Notes to Outpatient Provider: Ms. Lafleur presented to the ED complaining of shortness of breath. She had a CTA which did not show any pulmonary embolism but showed bibasilar airspace disease. Her respiratory panel showed adenovirus. Her oxygen demand continued to increase and pulmonology was consulted and they will follow with her outpatient for COPD. She will be discharged with 2 liters of supplemental oxygen. Also will need 4 additional days of levaquin for 7 days of community acquired pneumonia. She will also be discharged with duonebes, tioptropium, steroid taper and nicotine patches. Orders not resulted at time of discharge: Pending orders 02/04/19 17:11 MRSA Surveillance Screen [MOLMIC] Routine 02/04/19 18:15 Culture,Sputum with Gram Stain [RM] Routine Date of Encounter: 02/06/19 Time of Encounter: 10:50 - Discharge Diagnosis (1) Community acquired pneumonia Priority: Primary Status: Suspected Qualifiers: Laterality: unspecified laterality Qualified Code(s): J18.9 - Pneumonia, unspecified organism (2) COPD exacerbation Priority: Secondary Status: Suspected (3) Hypothyroidism Priority: Secondary Status: Acute Qualifiers: Hypothyroidism type: unspecified Qualified Code(s): E03.9 - Hypothyroidism, unspecified (4) History of DVT (deep vein thrombosis) Priority: Secondary Status: Chronic Hospital course: Ms. Lafleur is a 58 year old female who presented to the hospital complaining of shortness of breath, poor appetite, nausea emesis that was ongoing for a few days prior to presentation. She had a respiratory panel ordered which showed adenovirus. She was also noted to have significant supplemental oxygen demand. She underwent CTA did not show any embolism but showed bibasilar airspace disea se suspicious for pneumonia. Also she underwent echocardiogram which showed EF of 60-65% with mild left ventricular diastolic dysfunction. Pulmonology was also consulted given her increased oxygen demand. She was diagnosed with COPD exacerbation as well and will follow outpatient with pulmonolgy for further COPD management. Additionally she received antibiotics and IV steroids and have improved significantly. She will be discharged with 4 additional days of levaquin to complete 7 day course for community acquired pneumonia. Additionally she will be discharged with prednisone taper. She will also be discharged with duoneb and tiotropium for COPD. She has also qualified for 2 liters of home oxygen. She was noted to have hemoglobin of A1c of 7.0 but did not require any antiglycemics during her stay. She will also be discharged with nicotine patch and was counseled for smoking cessation. Discharge discussed with: patient - Time Spent with Patient Total time spent providing and/or coordinating discharge services: - Discharge Medications Prescriptions: New Ipratropium/Albuterol Neb [Duoneb] 3 ml IH [id number] #120 vial levoFLOXacin [Levaquin] 750 mg PO DAILY 4 Days #4 tablet Nicotine Patch [Nicoderm] 14 mg TD DAILY 30 Days #30 patch.[id number] predniSONE [PredniSONE] 10 mg PO DAILY 12 Days #30 tablet Tiotropium [place] [Spiriva Respimat] 4 gm IH DAILY 30 Days #30 mist.inhal Continue Levothyroxine [Synthroid] 100 mcg PO 0630 Home Medications: Levothyroxine [Synthroid] 100 mcg PO 0630 02/02/19 [History] Ipratropium/Albuterol Neb [Duoneb] 3 ml IH [id number] #120 vial 02/06/19 [Rx] Nicotine Patch [Nicoderm] 14 mg TD DAILY 30 Days #30 patch.[email or web address] 02/06/19 [Rx] Tiotropium [place] [Spiriva Respimat] 4 gm IH DAILY 30 Days #30 mist.inhal 02/06/19 [Rx] levoFLOXacin [Levaquin] 750 mg PO DAILY 4 Days #4 tablet 02/06/19 [Rx] predniSONE [PredniSONE] 10 mg PO DAILY 12 Days #30 tablet 02/06/19 [Rx] Allergies/Adverse Reactions: Allergy/AdvReac Type Severity Reaction Status Date / Time No Known Allergies Allergy Verified 02/03/19 13:32 Date of admission: 02/04/19 09:21 Primary care physician: Yue Galan CNP Consults: 02/04/19 11:47 Consult to Pulmonology [CONS] Routine Consulting Provider: Pulm Crit Care & Ethan Duque Reason for Consult: Acute respiratory failure, suspected undiagnosed COPD on 10L high flow O2, no prior home O2, not improving at expected pace. 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 No acute distress. Eyes: anicteric sclerae, moist conjunctivae; no lid-lag; HENT: Atraumatic; oropharynx clear with moist mucous membranes and no mucosal ulcerations; normal hard and soft palate Neck: Trachea midline; supple, no lymphadenopathy Cardiac: RRR, no murmur, +S1/S2 Pulmonary: Poor air flow b/l, no wheezing noted Abdomen: soft, nontender, no guarding. No masses or hepatosplenomegaly MSK: ROM intact, no joint swelling noted Extremities: no BLE edema, nontender calf, no cyanosis or clubbing Skin: Normal temperature, turgor and texture; no rash, ulcers or subcutaneous nodules Neuro: moves all extremities, no focal deficits. Psych: Appropriate mood and behavior. A&Ox3 - Patient Status Disposition: Home, Self-Care Condition: Good Functional capacity at discharge: independent ambulation Overall status at discharge: patient is progressing back to baseline - Discharge Instructions Instructions: Prednisone (By mouth), Nicotine (Absorbed through the skin), Levofloxacin (By mouth), Ipratropium/Albuterol (By breathing), Tiotropium (By breathing), Acute Respiratory Distress Syndrome (DC), Pneumonia (DC) Follow Up With: Yue Galan CNP [Primary Care Provider] - 02/09/19 9:45 am Deng Matos MD [Partnered Physician] - 03/05/19 2:00 pm () - Diet and Activity Activity: increase activity as tolerated Diet: diabetic diet <Ziggy Wilson - Last Filed: 02/06/19 15:17> Date of Encounter: 02/06/19 Date of admission: 02/04/19 09:21 Primary care physician: Yue Galan CNP Consults: 02/04/19 11:47 Consult to Pulmonology [CONS] Routine Consulting Provider: Pulm Crit Care & Sleep Dunia Reason for Consult: Acute respiratory failure, suspected undiagnosed COPD on 10L high flow O2, no prior home O2, not improving at expected pace. She's concerned about possible pneumonitis from car chemical exposure Call Completed: No - Attending Attestation Patient seen and examined. I agree with the discharge plan as documented above by the resident. In summary, Larissa Lafleur is a 58 F longtime smoker who p/w SOB and wheezing, found to be hypoxic with positive RVP for adenovirus, suggestive of COPD exacerbation causing acute hypoxic respiratory failure. Pt improved expectantly with steroids, abx, and nebs. Clinically diagnosed with COPD. Did fail walk test today and required 2L to maintain sats >88%, new diagnosis chronic hypoxemic respiratory failure. Outpatient follow up with PCP and Pulm. Homegoing Rx for MARK, LAMA, neb machine, O2, nicotine patches, and short course levaquin and prednisone. Pt promises to quit smoking. Time spent on discharge: 35 minutes
== END 2019-02-06 15:20 | disposition home or self-care (01) | DRG 193 ==
LOC: 2NENU → SUATTDRO 02-04 09:21
PROVIDERS: ADMIT Internal Medicine Nephrology; ATTEND Internal Medicine